=== PATIENT | male | born 1945 | race Caucasian/White ===

== ENCOUNTER 2017-11-01 11:44 | Inpatient (IN) | payer MEDICARE ==
[~2017-11-01] VITALS: Ht 177.8 cm; Wt 62.6 kg
[2017-11-01 14:54] VITALS: BP 142/81
[2017-11-01] MEDS ORDERED: ACETAMINOPHEN 325 MG TABLET PO PRN (15:30)
[2017-11-01] MEDS ORDERED: AmLODIPine BESYLATE 10 MG TABLET PO PRN (15:45)
[2017-11-01] MEDS ORDERED: IPRATROPIUM BROMIDE 0.5 MG/2.5 ML NEB SOLUTION NEB PRN (15:45)
[2017-11-01] MEDS ORDERED: BENZONATATE 100 MG CAPSULE PO PRN (15:45)
[2017-11-01] MEDS ORDERED: ALBUTEROL SULFATE 2.5 MG/0.5 ML NEB SOLUTION NEB PRN (15:45)
[2017-11-01] MEDS ORDERED: TiZANidine HCL 4 MG TABLET PO PRN (15:45)
[2017-11-01 15:54] VITALS: BP 141/77
[2017-11-01] MEDS: LACTOBACILLUS ACIDOPHILUS/BULGARICUS GRANULES PACKET PO SCH ×2 (16:00→21:00)
[2017-11-01] MEDS: OxyCODONE HCL 5 MG IR TABLET PO PRN ×3 (16:44→19:00)
[2017-11-01] MEDS: GABAPENTIN 400 MG CAPSULE PO SCH ×2 (17:26→21:20)
[2017-11-01] MEDS: DICLOFENAC SODIUM 1% 100 GM GEL [2GM] TP SCH ×2 (17:27→21:20)
[2017-11-01] MEDS: OXYGEN THERAPY IH SCH (20:05)
[2017-11-01 20:15] LABS: APPEARANCE,URINE CLOUDY (CLEAR); BILIRUBIN,URINE NEGATIVE (NEGATIVE); GLUCOSE, URINE (UA) NEGATIVE (NEGATIVE); KETONES,URINE NEGATIVE (NEGATIVE); LEUKOCYTE ESTERASE ,URINE LARGE (NEGATIVE); NITRATE,URINE NEGATIVE (NEGATIVE); OCCULT BLOOD,URINE SMALL (NEGATIVE); PROTEIN,URINE NEGATIVE (NEGATIVE); UROBILINOGEN,URINE 0.2 mg/dL (<=1.0)
[2017-11-01] MEDS: FLUTICASONE PROPIONATE 50 MCG/SPRAY 16 GM NASAL SPRAY NASAL SCH ×2 (21:00→21:20)
[2017-11-01 21:02] LABS: BACTERIA,URINE Many /HPF (None Seen); WBC,URINE 26-50 /HPF (0-5)
[2017-11-01 21:03] LABS: SQUAMOUS EPITHELIAL CELL,UR Few /LPF (None Seen)
[2017-11-01] MEDS: TAMSULOSIN HCL 0.4 MG CAPSULE PO SCH (21:20)
[2017-11-01] MEDS: SENNA 187 MG TABLET PO SCH (21:20)
[2017-11-01] MEDS: DOCUSATE SODIUM 100 MG CAPSULE PO SCH (21:20)
[2017-11-01] MEDS: APIXABAN 5 MG TABLET PO SCH (21:20)
[2017-11-02 00:57] VITALS: BP 117/67
[2017-11-02] MEDS: OxyCODONE HCL 5 MG IR TABLET PO PRN ×5 (00:57→20:10)
[2017-11-02] MEDS: PANTOPRAZOLE SODIUM 40 MG DR TABLET PO SCH (05:37)
[2017-11-02 06:54] LABS: EOSINOPHILS % (AUTO) 4.4 % (1.0-6.0); HEMATOCRIT 28.8 % (41-53); HEMOGLOBIN 9.9 g/dL (13.5-17.5); LYMPHOCYTES # (AUTO) 1.1 K/uL (1.0-4.8); LYMPHOCYTES % (AUTO) 12.1 % (22.0-44.0); MEAN CORPUSCULAR HEMOGLOBIN 31.6 pg (26.0-34.0); MEAN CORPUSCULAR HGB CONC 34.5 G/dL (31.0-37.0); MEAN CORPUSCULAR VOLUME 92 fL (80-100); MONOCYTES # (AUTO) 1.1 K/uL (0.1-1.0); MONOCYTES % (AUTO) 11.7 % (2.0-9.0); NEUTROPHILS # (AUTO) 6.4 K/uL (1.8-7.7); NEUTROPHILS % (AUTO) 70.8 % (40.0-70.0); PLATELET COUNT (AUTO) 244 K/uL (150-450); RED BLOOD CELL COUNT(AUTO) 3.14 MIL/uL (4.50-5.90); RED CELL DISTRIBUTION WIDTH 18.1 % (11.5-14.5)
[2017-11-02 07:41] LABS: ALBUMIN 2.9 g/dL (3.4-5.0); BILIRUBIN,TOTAL 0.6 mg/dL (0.1-1.0); CALCIUM, TOTAL 8.6 mg/dL (8.8-10.5); CREATININE 1.2 mg/dL (0.60-1.30); POTASSIUM 4.8 mmol/L (3.5-5.1); THYROID STIMULATING HORMONE 2.18 uIU/mL (0.36-3.74); TOTAL PROTEIN, SERUM 6.4 g/dL (6.4-8.2)
[2017-11-02 07:45] VITALS: BP 130/76
[2017-11-02] MEDS: FLUTICASONE PROPIONATE 50 MCG/SPRAY 16 GM NASAL SPRAY NASAL SCH ×3 (09:00→20:10)
[2017-11-02] MEDS: LACTOBACILLUS ACIDOPHILUS/BULGARICUS GRANULES PACKET PO SCH ×2 (09:00→10:03)
[2017-11-02] MEDS: GABAPENTIN 400 MG CAPSULE PO SCH ×3 (10:03→20:10)
[2017-11-02] MEDS: FUROSEMIDE 20 MG TABLET PO SCH (10:04)
[2017-11-02] MEDS: CHOLECALCIFEROL (VIT D3) 2,000 UNITS TABLET PO SCH (10:04)
[2017-11-02] MEDS: ASCORBIC ACID 500 MG TABLET PO SCH (10:04)
[2017-11-02] MEDS: APIXABAN 5 MG TABLET PO SCH ×2 (10:04→20:10)
[2017-11-02] MEDS: ALLOPURINOL 100 MG TABLET PO SCH (10:04)
[2017-11-02] MEDS: MULTIVITAMINS WITH MINERALS, THERAPEUTIC TABLET PO SCH (10:04)
[2017-11-02] MEDS: FERROUS SULFATE 325 MG EC TABLET PO SCH (10:05)
[2017-11-02] MEDS: SOTALOL HCL 80 MG TABLET PO SCH (10:05)
[2017-11-02] MEDS: DICLOFENAC SODIUM 1% 100 GM GEL [2GM] TP SCH ×3 (10:05→20:10)
[2017-11-02] MEDS: DOCUSATE SODIUM 100 MG CAPSULE PO SCH ×2 (10:05→20:10)
[2017-11-02] MEDS: POLYETHYLENE GLYCOL 3350 17 GM PACKET PO SCH (10:06)
[2017-11-02] MEDS: OXYGEN THERAPY IH SCH ×2 (10:36→20:09)
[2017-11-02 15:20] VITALS: BP 123/68
[2017-11-02] MEDS: TAMSULOSIN HCL 0.4 MG CAPSULE PO SCH (20:10)
[2017-11-02] MEDS: SENNA 187 MG TABLET PO SCH (20:10)
[2017-11-03] MEDS ORDERED: SOTA80 PO (00:41)
[2017-11-03] MEDS ORDERED: FURO20 PO (00:41)
[2017-11-03] MEDS ORDERED: ALLO300 PO (00:41)
[2017-11-03 01:12] VITALS: BP 154/76
[2017-11-03] MEDS: OxyCODONE HCL 5 MG IR TABLET PO PRN ×5 (01:12→20:11)
[2017-11-03] MEDS: PANTOPRAZOLE SODIUM 40 MG DR TABLET PO SCH (05:40)
[2017-11-03 07:12] VITALS: BP 135/82
[2017-11-03] MEDS: OXYGEN THERAPY IH SCH ×2 (07:29→21:23)
[2017-11-03] MEDS: FERROUS SULFATE 325 MG EC TABLET PO SCH (07:30)
[2017-11-03] MEDS: CHOLECALCIFEROL (VIT D3) 2,000 UNITS TABLET PO SCH (07:30)
[2017-11-03] MEDS: FLUTICASONE PROPIONATE 50 MCG/SPRAY 16 GM NASAL SPRAY NASAL SCH ×3 (07:30→21:00)
[2017-11-03] MEDS: SOTALOL HCL 80 MG TABLET PO SCH (07:31)
[2017-11-03] MEDS: MULTIVITAMINS WITH MINERALS, THERAPEUTIC TABLET PO SCH (07:31)
[2017-11-03] MEDS: FUROSEMIDE 20 MG TABLET PO SCH (07:31)
[2017-11-03] MEDS: ASCORBIC ACID 500 MG TABLET PO SCH (07:31)
[2017-11-03] MEDS: APIXABAN 5 MG TABLET PO SCH ×2 (07:32→21:23)
[2017-11-03] MEDS: GABAPENTIN 400 MG CAPSULE PO SCH ×3 (07:32→21:23)
[2017-11-03] MEDS: ALLOPURINOL 100 MG TABLET PO SCH (07:32)
[2017-11-03] MEDS: DOCUSATE SODIUM 100 MG CAPSULE PO SCH ×3 (07:32→21:00)
[2017-11-03] MEDS: DICLOFENAC SODIUM 1% 100 GM GEL [2GM] TP SCH ×3 (07:33→21:23)
[2017-11-03] MEDS: POTASSIUM CHLORIDE 10% 40 MEQ/30 ML LIQUID UDCUP PO SCH (07:33)
[2017-11-03] MEDS: POLYETHYLENE GLYCOL 3350 17 GM PACKET PO SCH (07:33)
[2017-11-03 15:17] VITALS: BP 121/67
[2017-11-03] MEDS: SENNA 187 MG TABLET PO SCH (21:23)
[2017-11-03] MEDS: TAMSULOSIN HCL 0.4 MG CAPSULE PO SCH (21:23)
[2017-11-04 00:30] VITALS: BP 134/68
[2017-11-04] MEDS: OxyCODONE HCL 5 MG IR TABLET PO PRN ×6 (00:30→21:17)
[2017-11-04] MEDS ORDERED: DOCUSATE CALCIUM 240 MG CAPSULE PO PRN (05:15)
[2017-11-04] MEDS: PANTOPRAZOLE SODIUM 40 MG DR TABLET PO SCH (06:10)
[2017-11-04 08:03] VITALS: BP 148/81
[2017-11-04] MEDS: FLUTICASONE PROPIONATE 50 MCG/SPRAY 16 GM NASAL SPRAY NASAL SCH ×2 (09:00→20:43)
[2017-11-04] MEDS: POLYETHYLENE GLYCOL 3350 17 GM PACKET PO SCH (09:00)
[2017-11-04] MEDS: CHOLECALCIFEROL (VIT D3) 2,000 UNITS TABLET PO SCH (10:08)
[2017-11-04] MEDS: ASCORBIC ACID 500 MG TABLET PO SCH (10:09)
[2017-11-04] MEDS: MULTIVITAMINS WITH MINERALS, THERAPEUTIC TABLET PO SCH (10:09)
[2017-11-04] MEDS: FERROUS SULFATE 325 MG EC TABLET PO SCH (10:09)
[2017-11-04] MEDS: GABAPENTIN 400 MG CAPSULE PO SCH ×3 (10:09→20:43)
[2017-11-04] MEDS: FUROSEMIDE 20 MG TABLET PO SCH (10:10)
[2017-11-04] MEDS: SOTALOL HCL 80 MG TABLET PO SCH (10:10)
[2017-11-04] MEDS: DICLOFENAC SODIUM 1% 100 GM GEL [2GM] TP SCH ×3 (10:10→20:43)
[2017-11-04] MEDS: APIXABAN 5 MG TABLET PO SCH ×2 (10:10→20:43)
[2017-11-04] MEDS: ALLOPURINOL 300 MG TABLET PO SCH (10:11)
[2017-11-04] MEDS: OXYGEN THERAPY IH SCH ×2 (10:12→20:42)
[2017-11-04 16:26] VITALS: BP 138/70
[2017-11-04] MEDS: SENNA 187 MG TABLET PO SCH (20:43)
[2017-11-04] MEDS: SULFAMETHOX/TRIMETH DS 800-160 MG/TABLET PO SCH (20:43)
[2017-11-04] MEDS: TAMSULOSIN HCL 0.4 MG CAPSULE PO SCH (20:43)
[2017-11-04 23:28] VITALS: BP 130/70
[2017-11-05] MEDS: OxyCODONE HCL 5 MG IR TABLET PO PRN ×5 (01:36→20:16)
[2017-11-05 07:30] VITALS: BP 111/73
[2017-11-05] MEDS: PANTOPRAZOLE SODIUM 40 MG DR TABLET PO SCH (07:46)
[2017-11-05] MEDS: FERROUS SULFATE 325 MG EC TABLET PO SCH (07:46)
[2017-11-05] MEDS: OXYGEN THERAPY IH SCH ×2 (08:00→20:16)
[2017-11-05] MEDS: FLUTICASONE PROPIONATE 50 MCG/SPRAY 16 GM NASAL SPRAY NASAL SCH (09:00)
[2017-11-05] MEDS: POLYETHYLENE GLYCOL 3350 17 GM PACKET PO SCH (09:00)
[2017-11-05] MEDS: APIXABAN 5 MG TABLET PO SCH ×2 (10:00→22:53)
[2017-11-05] MEDS: GABAPENTIN 400 MG CAPSULE PO SCH ×3 (10:00→22:53)
[2017-11-05] MEDS: ALLOPURINOL 300 MG TABLET PO SCH (10:00)
[2017-11-05] MEDS: CHOLECALCIFEROL (VIT D3) 2,000 UNITS TABLET PO SCH (10:00)
[2017-11-05] MEDS: ASCORBIC ACID 500 MG TABLET PO SCH (10:00)
[2017-11-05] MEDS: FUROSEMIDE 20 MG TABLET PO SCH (10:01)
[2017-11-05] MEDS: MULTIVITAMINS WITH MINERALS, THERAPEUTIC TABLET PO SCH (10:01)
[2017-11-05] MEDS: DICLOFENAC SODIUM 1% 100 GM GEL [2GM] TP SCH ×3 (10:01→22:53)
[2017-11-05] MEDS: SOTALOL HCL 80 MG TABLET PO SCH (10:01)
[2017-11-05] MEDS: SULFAMETHOX/TRIMETH DS 800-160 MG/TABLET PO SCH ×2 (10:01→22:53)
[2017-11-05] MEDS: POTASSIUM CHLORIDE 10% 40 MEQ/30 ML LIQUID UDCUP PO SCH (10:02)
[2017-11-05] MEDS ORDERED: TRIAMCINOLONE ACETONIDE 40 MG/ML VIAL IM ONE (15:00)
[2017-11-05] MEDS ORDERED: LIDOCAINE HCL 1% 20 ML VIAL INJ ONE (15:00)
[2017-11-05] MEDS ORDERED: BUPIVACAINE HCL/PF 0.5% 10 ML VIAL INJ ONE (15:00)
[2017-11-05 16:15] VITALS: BP 129/70
[2017-11-05] MEDS: TAMSULOSIN HCL 0.4 MG CAPSULE PO SCH (22:53)
[2017-11-05] MEDS: SENNA 187 MG TABLET PO SCH (22:53)
[2017-11-06 00:17] VITALS: BP 139/89
[2017-11-06] MEDS: OxyCODONE HCL 5 MG IR TABLET PO PRN ×5 (00:17→23:51)
[2017-11-06] MEDS: PANTOPRAZOLE SODIUM 40 MG DR TABLET PO SCH (06:20)
[2017-11-06 07:45] VITALS: BP 123/66
[2017-11-06] MEDS: OXYGEN THERAPY IH SCH ×2 (08:00→20:00)
[2017-11-06] MEDS: POLYETHYLENE GLYCOL 3350 17 GM PACKET PO SCH (09:00)
[2017-11-06] MEDS: FERROUS SULFATE 325 MG EC TABLET PO SCH (10:26)
[2017-11-06] MEDS: ASCORBIC ACID 500 MG TABLET PO SCH (10:26)
[2017-11-06] MEDS: CHOLECALCIFEROL (VIT D3) 2,000 UNITS TABLET PO SCH (10:26)
[2017-11-06] MEDS: DICLOFENAC SODIUM 1% 100 GM GEL [2GM] TP SCH ×3 (10:26→21:02)
[2017-11-06] MEDS: MULTIVITAMINS WITH MINERALS, THERAPEUTIC TABLET PO SCH (10:26)
[2017-11-06] MEDS: APIXABAN 5 MG TABLET PO SCH ×2 (10:26→21:02)
[2017-11-06] MEDS: SULFAMETHOX/TRIMETH DS 800-160 MG/TABLET PO SCH ×2 (10:26→21:02)
[2017-11-06] MEDS: GABAPENTIN 400 MG CAPSULE PO SCH ×3 (10:26→21:02)
[2017-11-06] MEDS: FUROSEMIDE 20 MG TABLET PO SCH (10:27)
[2017-11-06] MEDS: ALLOPURINOL 300 MG TABLET PO SCH (10:27)
[2017-11-06] MEDS: SOTALOL HCL 80 MG TABLET PO SCH (10:27)
[2017-11-06] MEDS: HYDROCORTISONE 1% 30 GM OINTMENT TP PRN ×2 (14:21→18:25)
[2017-11-06 16:00] VITALS: BP 103/65
[2017-11-06] MEDS: SENNA 187 MG TABLET PO SCH (21:02)
[2017-11-06] MEDS: TAMSULOSIN HCL 0.4 MG CAPSULE PO SCH (21:02)
[2017-11-06 23:51] VITALS: BP 113/62
[2017-11-07] MEDS: HYDROCORTISONE 1% 30 GM OINTMENT TP PRN ×3 (05:11→21:41)
[2017-11-07] MEDS: OxyCODONE HCL 5 MG IR TABLET PO PRN ×3 (05:12→21:41)
[2017-11-07] MEDS: PANTOPRAZOLE SODIUM 40 MG DR TABLET PO SCH (05:42)
[2017-11-07] MEDS: OXYGEN THERAPY IH SCH ×2 (08:00→20:00)
[2017-11-07] MEDS: ASCORBIC ACID 500 MG TABLET PO SCH (08:22)
[2017-11-07] MEDS: CHOLECALCIFEROL (VIT D3) 2,000 UNITS TABLET PO SCH (08:23)
[2017-11-07] MEDS: DICLOFENAC SODIUM 1% 100 GM GEL [2GM] TP SCH ×3 (08:23→21:41)
[2017-11-07] MEDS: FERROUS SULFATE 325 MG EC TABLET PO SCH (08:23)
[2017-11-07] MEDS: SULFAMETHOX/TRIMETH DS 800-160 MG/TABLET PO SCH ×2 (08:23→21:40)
[2017-11-07] MEDS: MULTIVITAMINS WITH MINERALS, THERAPEUTIC TABLET PO SCH (08:23)
[2017-11-07] MEDS: FUROSEMIDE 20 MG TABLET PO SCH (08:24)
[2017-11-07] MEDS: APIXABAN 5 MG TABLET PO SCH ×2 (08:24→21:40)
[2017-11-07] MEDS: ALLOPURINOL 300 MG TABLET PO SCH (08:25)
[2017-11-07] MEDS: GABAPENTIN 400 MG CAPSULE PO SCH ×3 (08:25→21:40)
[2017-11-07] MEDS: POLYETHYLENE GLYCOL 3350 17 GM PACKET PO SCH (08:25)
[2017-11-07] MEDS: POTASSIUM CHLORIDE 10% 40 MEQ/30 ML LIQUID UDCUP PO SCH (08:25)
[2017-11-07] MEDS: SOTALOL HCL 80 MG TABLET PO SCH (08:25)
[2017-11-07 08:40] VITALS: BP 90/51
[2017-11-07] MEDS: TraMADol HCL 50 MG TABLET PO PRN ×2 (08:44→16:10)
[2017-11-07 15:37] VITALS: BP 109/63
[2017-11-07] MEDS: BETHANECHOL CHLORIDE 25 MG TABLET PO SCH ×2 (16:10→21:41)
[2017-11-07] MEDS: TAMSULOSIN HCL 0.4 MG CAPSULE PO SCH (21:40)
[2017-11-07] MEDS: SENNA 187 MG TABLET PO SCH (21:41)
[2017-11-08 01:21] VITALS: BP 99/45
[2017-11-08 03:35] VITALS: BP 104/67
[2017-11-08] MEDS: OxyCODONE HCL 5 MG IR TABLET PO PRN ×3 (03:35→21:58)
[2017-11-08] MEDS: PANTOPRAZOLE SODIUM 40 MG DR TABLET PO SCH (05:56)
[2017-11-08] MEDS: TraMADol HCL 50 MG TABLET PO PRN ×2 (05:59→15:42)
[2017-11-08 07:35] VITALS: BP 104/66
[2017-11-08] MEDS: OXYGEN THERAPY IH SCH ×2 (08:00→21:56)
[2017-11-08] MEDS: DICLOFENAC SODIUM 1% 100 GM GEL [2GM] TP SCH ×3 (08:40→21:58)
[2017-11-08] MEDS: CHOLECALCIFEROL (VIT D3) 2,000 UNITS TABLET PO SCH (08:40)
[2017-11-08] MEDS: GABAPENTIN 400 MG CAPSULE PO SCH ×3 (08:40→21:57)
[2017-11-08] MEDS: HYDROCORTISONE 1% 30 GM OINTMENT TP PRN ×2 (08:40→16:05)
[2017-11-08] MEDS: BETHANECHOL CHLORIDE 25 MG TABLET PO SCH ×3 (08:41→21:57)
[2017-11-08] MEDS: SOTALOL HCL 80 MG TABLET PO SCH (08:41)
[2017-11-08] MEDS: ALLOPURINOL 300 MG TABLET PO SCH (08:41)
[2017-11-08] MEDS: SULFAMETHOX/TRIMETH DS 800-160 MG/TABLET PO SCH ×2 (08:41→21:58)
[2017-11-08] MEDS: MULTIVITAMINS WITH MINERALS, THERAPEUTIC TABLET PO SCH (08:42)
[2017-11-08] MEDS: FERROUS SULFATE 325 MG EC TABLET PO SCH (08:42)
[2017-11-08] MEDS: ASCORBIC ACID 500 MG TABLET PO SCH (08:42)
[2017-11-08] MEDS: APIXABAN 5 MG TABLET PO SCH ×2 (08:42→21:57)
[2017-11-08] MEDS: POLYETHYLENE GLYCOL 3350 17 GM PACKET PO SCH ×2 (08:42→10:04)
[2017-11-08] MEDS: FUROSEMIDE 20 MG TABLET PO SCH (08:42)
[2017-11-08] MEDS: NYSTATIN 15 GM POWDER BOTTLE TP SCH ×2 (10:03→21:58)
[2017-11-08 15:40] VITALS: BP 112/67
[2017-11-08] MEDS: TAMSULOSIN HCL 0.4 MG CAPSULE PO SCH (21:57)
[2017-11-08] MEDS: SENNA 187 MG TABLET PO SCH (21:58)
[2017-11-09 01:17] VITALS: BP 107/62
[2017-11-09] MEDS: OxyCODONE HCL 5 MG IR TABLET PO PRN ×4 (04:17→19:44)
[2017-11-09] MEDS: PANTOPRAZOLE SODIUM 40 MG DR TABLET PO SCH (06:00)
[2017-11-09 06:33] LABS: EOSINOPHILS % (AUTO) 4.5 % (1.0-6.0); HEMOGLOBIN 9.8 g/dL (13.5-17.5); LYMPHOCYTES # (AUTO) 0.8 K/uL (1.0-4.8); LYMPHOCYTES % (AUTO) 11.4 % (22.0-44.0); MEAN CORPUSCULAR HEMOGLOBIN 31.3 pg (26.0-34.0); MEAN CORPUSCULAR VOLUME 92 fL (80-100); MONOCYTES # (AUTO) 0.8 K/uL (0.1-1.0); MONOCYTES % (AUTO) 10.4 % (2.0-9.0); NEUTROPHILS # (AUTO) 5.4 K/uL (1.8-7.7); NEUTROPHILS % (AUTO) 72.7 % (40.0-70.0); PLATELET COUNT (AUTO) 261 K/uL (150-450); RED BLOOD CELL COUNT(AUTO) 3.14 MIL/uL (4.50-5.90); RED CELL DISTRIBUTION WIDTH 18.1 % (11.5-14.5)
[2017-11-09 06:59] LABS: % IRON SATURATION 25.5 % (30-44)
[2017-11-09 07:12] LABS: ALBUMIN 3.2 g/dL (3.4-5.0); BILIRUBIN,TOTAL 0.3 mg/dL (0.1-1.0); CALCIUM, TOTAL 8.8 mg/dL (8.8-10.5); CREATININE 1.95 mg/dL (0.60-1.30); TOTAL PROTEIN, SERUM 6.8 g/dL (6.4-8.2)
[2017-11-09 07:29] LABS: POTASSIUM 7.3 mmol/L (3.5-5.1)
[2017-11-09 08:00] VITALS: BP 102/59
[2017-11-09] MEDS ORDERED: SODIUM POLYSTYRENE SULFONATE 15 GM/60 ML SUSPENSION BOTTLE PO ONE ×2 (08:00→19:00)
[2017-11-09] MEDS: SULFAMETHOX/TRIMETH DS 800-160 MG/TABLET PO SCH (08:07)
[2017-11-09] MEDS: FERROUS SULFATE 325 MG EC TABLET PO SCH (08:08)
[2017-11-09] MEDS: BETHANECHOL CHLORIDE 25 MG TABLET PO SCH ×3 (08:08→21:47)
[2017-11-09] MEDS: MULTIVITAMINS WITH MINERALS, THERAPEUTIC TABLET PO SCH (08:09)
[2017-11-09] MEDS: SOTALOL HCL 80 MG TABLET PO SCH (08:09)
[2017-11-09] MEDS: ASCORBIC ACID 500 MG TABLET PO SCH (08:10)
[2017-11-09] MEDS: GABAPENTIN 400 MG CAPSULE PO SCH ×5 (08:10→21:47)
[2017-11-09] MEDS: APIXABAN 5 MG TABLET PO SCH ×2 (08:11→21:47)
[2017-11-09] MEDS: DICLOFENAC SODIUM 1% 100 GM GEL [2GM] TP SCH ×3 (08:11→21:00)
[2017-11-09] MEDS: NYSTATIN 15 GM POWDER BOTTLE TP SCH ×2 (08:11→21:47)
[2017-11-09] MEDS: CHOLECALCIFEROL (VIT D3) 2,000 UNITS TABLET PO SCH (08:12)
[2017-11-09] MEDS ORDERED: EPOETIN ALFA 10,000 UNITS/ML VIAL SQ SCH (09:00)
[2017-11-09] MEDS: ALLOPURINOL 300 MG TABLET PO SCH (09:00)
[2017-11-09] MEDS: POLYETHYLENE GLYCOL 3350 17 GM PACKET PO SCH (09:00)
[2017-11-09] MEDS: ONDANSETRON HCL 4 MG TABLET PO PRN (09:15)
[2017-11-09] MEDS: OXYGEN THERAPY IH SCH ×3 (10:58→23:21)
[2017-11-09 11:13] LABS: FOLATE SERUM 8.5 ng/mL (5.4-)
[2017-11-09] MEDS ORDERED: CALCIUM GLUCONATE 1,000 MG in DEXTROSE 5%-WATER 50 ML IV ONE (11:15)
[2017-11-09 13:31] LABS: CREATININE 1.86 mg/dL (0.60-1.30)
[2017-11-09 13:32] LABS: CALCIUM, TOTAL 9.1 mg/dL (8.8-10.5)
[2017-11-09 13:34] LABS: POTASSIUM 6.6 mmol/L (3.5-5.1)
[2017-11-09] MEDS: SODIUM CHLORIDE 0.9% 1,000 ML IV SCH (14:17)
[2017-11-09] MEDS ORDERED: FUROSEMIDE 20 MG TABLET PO SCH (15:00)
[2017-11-09 16:00] VITALS: BP 108/58
[2017-11-09 18:25] LABS: CREATININE 1.85 mg/dL (0.60-1.30)
[2017-11-09 18:27] LABS: POTASSIUM 6.2 mmol/L (3.5-5.1)
[2017-11-09 18:32] LABS: CREATININE,URINE RANDOM 40.3 mg/dL (30.0-125.0)
[2017-11-09] MEDS: SENNA 187 MG TABLET PO SCH (21:00)
[2017-11-09] MEDS: TAMSULOSIN HCL 0.4 MG CAPSULE PO SCH (21:47)
[2017-11-09 23:47] VITALS: BP 145/82
[2017-11-10] MEDS: OxyCODONE HCL 5 MG IR TABLET PO PRN ×7 (00:30→21:33)
[2017-11-10] MEDS: 0.9% SODIUM CHLORIDE 10 ML SYRINGE IVP SCH ×3 (00:30→16:28)
[2017-11-10] MEDS: SODIUM CHLORIDE 0.9% 1,000 ML IV SCH ×2 (01:48→14:50)
[2017-11-10] MEDS: PANTOPRAZOLE SODIUM 40 MG DR TABLET PO SCH (06:04)
[2017-11-10 06:57] LABS: CALCIUM, TOTAL 9.3 mg/dL (8.8-10.5); CREATININE 1.74 mg/dL (0.60-1.30); POTASSIUM 5.9 mmol/L (3.5-5.1)
[2017-11-10 07:00] VITALS: BP 144/86
[2017-11-10] MEDS: FERROUS SULFATE 325 MG EC TABLET PO SCH (07:30)
[2017-11-10] MEDS: APIXABAN 5 MG TABLET PO SCH ×2 (08:37→22:01)
[2017-11-10] MEDS: FUROSEMIDE 20 MG TABLET PO SCH (08:38)
[2017-11-10] MEDS: SOTALOL HCL 80 MG TABLET PO SCH (08:40)
[2017-11-10] MEDS: HYDROCORTISONE 1% 30 GM OINTMENT TP PRN (08:41)
[2017-11-10] MEDS: MULTIVITAMINS WITH MINERALS, THERAPEUTIC TABLET PO SCH (09:00)
[2017-11-10] MEDS: BETHANECHOL CHLORIDE 25 MG TABLET PO SCH ×3 (09:00→21:00)
[2017-11-10] MEDS: DICLOFENAC SODIUM 1% 100 GM GEL [2GM] TP SCH ×3 (09:00→21:00)
[2017-11-10] MEDS: ASCORBIC ACID 500 MG TABLET PO SCH (09:00)
[2017-11-10] MEDS: GABAPENTIN 400 MG CAPSULE PO SCH ×3 (09:00→21:00)
[2017-11-10] MEDS: CHOLECALCIFEROL (VIT D3) 2,000 UNITS TABLET PO SCH (09:00)
[2017-11-10] MEDS: POLYETHYLENE GLYCOL 3350 17 GM PACKET PO SCH (09:00)
[2017-11-10] MEDS: NYSTATIN 15 GM POWDER BOTTLE TP SCH ×2 (09:39→22:01)
[2017-11-10 15:25] VITALS: BP 128/77
[2017-11-10] MEDS: ONDANSETRON HCL 4 MG TABLET PO PRN (19:53)
[2017-11-10] MEDS: OXYGEN THERAPY IH SCH (20:00)
[2017-11-10 20:10] VITALS: BP 160/80
[2017-11-10] MEDS: SENNA 187 MG TABLET PO SCH (21:00)
[2017-11-10] MEDS: TAMSULOSIN HCL 0.4 MG CAPSULE PO SCH (21:00)
[2017-11-11] MEDS: 0.9% SODIUM CHLORIDE 10 ML SYRINGE IVP SCH ×2 (00:33→09:41)
[2017-11-11 00:41] VITALS: BP 133/73
[2017-11-11] MEDS: OxyCODONE HCL 5 MG IR TABLET PO PRN ×6 (01:36→22:41)
[2017-11-11] MEDS ORDERED: SODIUM CHLORIDE 0.9% 1,000 ML IV SCH (04:00)
[2017-11-11] MEDS: SODIUM CHLORIDE 0.9% 1,000 ML IV SCH (04:03)
[2017-11-11] MEDS: PANTOPRAZOLE SODIUM 40 MG DR TABLET PO SCH (05:37)
[2017-11-11 07:30] VITALS: BP 136/77
[2017-11-11] MEDS: FERROUS SULFATE 325 MG EC TABLET PO SCH (07:30)
[2017-11-11 08:16] LABS: CALCIUM, TOTAL 8.7 mg/dL (8.8-10.5); CREATININE 1.43 mg/dL (0.60-1.30); POTASSIUM 5.6 mmol/L (3.5-5.1)
[2017-11-11] MEDS: MULTIVITAMINS WITH MINERALS, THERAPEUTIC TABLET PO SCH (09:00)
[2017-11-11] MEDS: POLYETHYLENE GLYCOL 3350 17 GM PACKET PO SCH (09:00)
[2017-11-11] MEDS: ASCORBIC ACID 500 MG TABLET PO SCH (09:00)
[2017-11-11] MEDS: GABAPENTIN 400 MG CAPSULE PO SCH ×3 (09:00→21:00)
[2017-11-11] MEDS: BETHANECHOL CHLORIDE 25 MG TABLET PO SCH ×3 (09:00→21:00)
[2017-11-11] MEDS: DICLOFENAC SODIUM 1% 100 GM GEL [2GM] TP SCH ×3 (09:00→21:00)
[2017-11-11] MEDS: CHOLECALCIFEROL (VIT D3) 2,000 UNITS TABLET PO SCH (09:00)
[2017-11-11] MEDS: SOTALOL HCL 80 MG TABLET PO SCH (09:40)
[2017-11-11] MEDS: NYSTATIN 15 GM POWDER BOTTLE TP SCH ×2 (09:40→21:26)
[2017-11-11] MEDS: HYDROCORTISONE 1% 30 GM OINTMENT TP PRN (09:40)
[2017-11-11] MEDS: OXYGEN THERAPY IH SCH ×2 (09:40→20:00)
[2017-11-11] MEDS: FUROSEMIDE 20 MG TABLET PO SCH (09:40)
[2017-11-11] MEDS: APIXABAN 5 MG TABLET PO SCH ×2 (09:40→21:13)
[2017-11-11 15:19] VITALS: BP 146/74
[2017-11-11] MEDS: TAMSULOSIN HCL 0.4 MG CAPSULE PO SCH (21:00)
[2017-11-11] MEDS: SENNA 187 MG TABLET PO SCH (21:00)
[2017-11-11] MEDS: TraMADol HCL 50 MG TABLET PO PRN ×2 (21:13→21:16)
[2017-11-12 00:26] VITALS: BP 139/79
[2017-11-12] MEDS: OxyCODONE HCL 5 MG IR TABLET PO PRN ×5 (02:50→20:42)
[2017-11-12] MEDS: ONDANSETRON HCL 4 MG TABLET PO PRN (05:36)
[2017-11-12] MEDS: PANTOPRAZOLE SODIUM 40 MG DR TABLET PO SCH (05:52)
[2017-11-12 07:10] LABS: CALCIUM, TOTAL 9.4 mg/dL (8.8-10.5); CREATININE 1.42 mg/dL (0.60-1.30); URIC ACID 5.4 mg/dL (2.6-7.2)
[2017-11-12 07:15] VITALS: BP 152/84
[2017-11-12] MEDS: FERROUS SULFATE 325 MG EC TABLET PO SCH (07:30)
[2017-11-12] MEDS: APIXABAN 5 MG TABLET PO SCH ×2 (07:51→20:42)
[2017-11-12] MEDS: SOTALOL HCL 80 MG TABLET PO SCH (07:51)
[2017-11-12] MEDS: FUROSEMIDE 20 MG TABLET PO SCH (07:51)
[2017-11-12] MEDS: POLYETHYLENE GLYCOL 3350 17 GM PACKET PO SCH (07:57)
[2017-11-12] MEDS: GABAPENTIN 400 MG CAPSULE PO SCH ×3 (07:57→20:56)
[2017-11-12] MEDS: ASCORBIC ACID 500 MG TABLET PO SCH (07:58)
[2017-11-12] MEDS: CHOLECALCIFEROL (VIT D3) 2,000 UNITS TABLET PO SCH (07:58)
[2017-11-12] MEDS: BETHANECHOL CHLORIDE 25 MG TABLET PO SCH ×3 (07:58→20:56)
[2017-11-12] MEDS: OXYGEN THERAPY IH SCH ×2 (07:58→20:00)
[2017-11-12] MEDS: MULTIVITAMINS WITH MINERALS, THERAPEUTIC TABLET PO SCH (07:58)
[2017-11-12] MEDS: DICLOFENAC SODIUM 1% 100 GM GEL [2GM] TP SCH ×3 (07:58→20:56)
[2017-11-12] MEDS: NYSTATIN 15 GM POWDER BOTTLE TP SCH ×2 (12:20→20:56)
[2017-11-12 15:39] VITALS: BP 150/84
[2017-11-12] MEDS: TraMADol HCL 50 MG TABLET PO PRN ×2 (15:39→23:27)
[2017-11-12] MEDS: TAMSULOSIN HCL 0.4 MG CAPSULE PO SCH (20:56)
[2017-11-12] MEDS: SENNA 187 MG TABLET PO SCH (20:56)
[2017-11-12 23:27] VITALS: BP 141/81
[2017-11-13] MEDS: OxyCODONE HCL 5 MG IR TABLET PO PRN ×6 (00:39→22:14)
[2017-11-13 06:02] LABS: BASOPHILS % (AUTO) 1.3 % (0.0-2.0); EOSINOPHILS % (AUTO) 4.6 % (1.0-6.0); HEMATOCRIT 33.4 % (41-53); HEMOGLOBIN 11.3 g/dL (13.5-17.5); LYMPHOCYTES # (AUTO) 1.1 K/uL (1.0-4.8); LYMPHOCYTES % (AUTO) 13.1 % (22.0-44.0); MEAN CORPUSCULAR HGB CONC 33.7 G/dL (31.0-37.0); MEAN CORPUSCULAR VOLUME 92 fL (80-100); MONOCYTES # (AUTO) 0.8 K/uL (0.1-1.0); MONOCYTES % (AUTO) 9.6 % (2.0-9.0); NEUTROPHILS % (AUTO) 71.4 % (40.0-70.0); PLATELET COUNT (AUTO) 300 K/uL (150-450); RED BLOOD CELL COUNT(AUTO) 3.63 MIL/uL (4.50-5.90); RED CELL DISTRIBUTION WIDTH 18.4 % (11.5-14.5)
[2017-11-13] MEDS: PANTOPRAZOLE SODIUM 40 MG DR TABLET PO SCH (06:11)
[2017-11-13 06:38] LABS: CREATININE 1.22 mg/dL (0.60-1.30); POTASSIUM 4.7 mmol/L (3.5-5.1)
[2017-11-13 07:24] VITALS: BP 155/93
[2017-11-13] MEDS: FERROUS SULFATE 325 MG EC TABLET PO SCH (07:30)
[2017-11-13] MEDS: OXYGEN THERAPY IH SCH ×2 (08:00→20:00)
[2017-11-13] MEDS: GABAPENTIN 400 MG CAPSULE PO SCH ×3 (09:00→20:38)
[2017-11-13] MEDS: MULTIVITAMINS WITH MINERALS, THERAPEUTIC TABLET PO SCH (09:00)
[2017-11-13] MEDS: POLYETHYLENE GLYCOL 3350 17 GM PACKET PO SCH (09:00)
[2017-11-13] MEDS: NYSTATIN 15 GM POWDER BOTTLE TP SCH ×2 (09:00→20:39)
[2017-11-13] MEDS: CHOLECALCIFEROL (VIT D3) 2,000 UNITS TABLET PO SCH (09:00)
[2017-11-13] MEDS: BETHANECHOL CHLORIDE 25 MG TABLET PO SCH ×3 (09:01→20:38)
[2017-11-13] MEDS: SOTALOL HCL 80 MG TABLET PO SCH (09:02)
[2017-11-13] MEDS: APIXABAN 5 MG TABLET PO SCH ×2 (09:02→20:37)
[2017-11-13] MEDS: FUROSEMIDE 20 MG TABLET PO SCH (09:02)
[2017-11-13] MEDS: ASCORBIC ACID 500 MG TABLET PO SCH (09:15)
[2017-11-13] MEDS: DICLOFENAC SODIUM 1% 100 GM GEL [2GM] TP SCH ×3 (09:15→20:40)
[2017-11-13] MEDS: ONDANSETRON HCL 4 MG TABLET PO PRN (12:45)
[2017-11-13] MEDS: SENNA 187 MG TABLET PO SCH (20:38)
[2017-11-13] MEDS: TAMSULOSIN HCL 0.4 MG CAPSULE PO SCH (20:39)
[2017-11-13 23:15] VITALS: BP 147/86
[2017-11-14] MEDS: OxyCODONE HCL 5 MG IR TABLET PO PRN ×6 (02:27→23:44)
[2017-11-14] MEDS: PANTOPRAZOLE SODIUM 40 MG DR TABLET PO SCH (06:08)
[2017-11-14] MEDS: OXYGEN THERAPY IH SCH ×2 (08:00→20:00)
[2017-11-14 08:39] VITALS: BP 166/80
[2017-11-14] MEDS: BETHANECHOL CHLORIDE 25 MG TABLET PO SCH ×3 (08:44→20:54)
[2017-11-14] MEDS: FERROUS SULFATE 325 MG EC TABLET PO SCH (08:44)
[2017-11-14] MEDS: MULTIVITAMINS WITH MINERALS, THERAPEUTIC TABLET PO SCH (08:44)
[2017-11-14] MEDS: APIXABAN 5 MG TABLET PO SCH ×2 (08:44→20:54)
[2017-11-14] MEDS: ASCORBIC ACID 500 MG TABLET PO SCH (08:44)
[2017-11-14] MEDS: CHOLECALCIFEROL (VIT D3) 2,000 UNITS TABLET PO SCH (08:44)
[2017-11-14] MEDS: DICLOFENAC SODIUM 1% 100 GM GEL [2GM] TP SCH ×3 (08:45→20:55)
[2017-11-14] MEDS: NYSTATIN 15 GM POWDER BOTTLE TP SCH ×2 (08:45→20:55)
[2017-11-14] MEDS: POLYETHYLENE GLYCOL 3350 17 GM PACKET PO SCH (08:45)
[2017-11-14] MEDS: GABAPENTIN 400 MG CAPSULE PO SCH ×3 (08:45→20:55)
[2017-11-14 08:48] VITALS: BP 135/68
[2017-11-14] MEDS: SOTALOL HCL 80 MG TABLET PO SCH ×2 (09:00→13:07)
[2017-11-14] MEDS: ONDANSETRON HCL 4 MG TABLET PO PRN (14:16)
[2017-11-14 16:03] VITALS: BP 122/76
[2017-11-14] MEDS: TAMSULOSIN HCL 0.4 MG CAPSULE PO SCH (20:54)
[2017-11-14] MEDS: SENNA 187 MG TABLET PO SCH (20:55)
[2017-11-14 23:30] VITALS: BP 168/86
[2017-11-15] MEDS: OxyCODONE HCL 5 MG IR TABLET PO PRN ×4 (04:44→20:08)
[2017-11-15] MEDS: DOCUSATE SODIUM/BENZOCAINE 283-20MG/5 ML MINI-ENEMA PR SCH ×2 (06:00→09:00)
[2017-11-15] MEDS: FERROUS SULFATE 325 MG EC TABLET PO SCH (07:30)
[2017-11-15] MEDS: OXYGEN THERAPY IH SCH ×2 (08:00→20:00)
[2017-11-15 08:10] VITALS: BP 158/78
[2017-11-15] MEDS: DOCUSATE SODIUM 283 MG/5 ML MINI-ENEMA PR PRN (08:16)
[2017-11-15] MEDS: PANTOPRAZOLE SODIUM 40 MG DR TABLET PO SCH (08:16)
[2017-11-15] MEDS: GABAPENTIN 400 MG CAPSULE PO SCH ×3 (09:00→21:00)
[2017-11-15] MEDS: NYSTATIN 15 GM POWDER BOTTLE TP SCH ×2 (09:00→21:00)
[2017-11-15 09:28] LABS: EOSINOPHILS % (AUTO) 4.6 % (1.0-6.0); HEMATOCRIT 38.4 % (41-53); HEMOGLOBIN 12.7 g/dL (13.5-17.5); LYMPHOCYTES # (AUTO) 1.1 K/uL (1.0-4.8); LYMPHOCYTES % (AUTO) 14.6 % (22.0-44.0); MEAN CORPUSCULAR HGB CONC 33.2 G/dL (31.0-37.0); MEAN CORPUSCULAR VOLUME 93 fL (80-100); MONOCYTES # (AUTO) 0.7 K/uL (0.1-1.0); NEUTROPHILS # (AUTO) 5.6 K/uL (1.8-7.7); NEUTROPHILS % (AUTO) 70.8 % (40.0-70.0); PLATELET COUNT (AUTO) 360 K/uL (150-450); RED BLOOD CELL COUNT(AUTO) 4.11 MIL/uL (4.50-5.90)
[2017-11-15 09:30] LABS: CALCIUM, TOTAL 9.3 mg/dL (8.8-10.5); CREATININE 1.31 mg/dL (0.60-1.30); POTASSIUM 4.5 mmol/L (3.5-5.1)
[2017-11-15] MEDS: DICLOFENAC SODIUM 1% 100 GM GEL [2GM] TP SCH ×3 (10:08→21:00)
[2017-11-15] MEDS: APIXABAN 5 MG TABLET PO SCH ×2 (10:08→20:06)
[2017-11-15] MEDS: BETHANECHOL CHLORIDE 25 MG TABLET PO SCH ×3 (10:13→20:06)
[2017-11-15] MEDS: MULTIVITAMINS WITH MINERALS, THERAPEUTIC TABLET PO SCH (10:13)
[2017-11-15] MEDS: POLYETHYLENE GLYCOL 3350 17 GM PACKET PO SCH (10:13)
[2017-11-15] MEDS: CHOLECALCIFEROL (VIT D3) 2,000 UNITS TABLET PO SCH (10:13)
[2017-11-15] MEDS: ASCORBIC ACID 500 MG TABLET PO SCH (10:13)
[2017-11-15] MEDS: FUROSEMIDE 20 MG TABLET PO SCH (10:14)
[2017-11-15] MEDS: SOTALOL HCL 80 MG TABLET PO SCH (10:20)
[2017-11-15 14:30] VITALS: BP 102/54
[2017-11-15 15:30] VITALS: BP 151/64
[2017-11-15] MEDS: TraMADol HCL 50 MG TABLET PO PRN (17:33)
[2017-11-15] MEDS: SENNA 187 MG TABLET PO SCH (21:00)
[2017-11-15] MEDS: TAMSULOSIN HCL 0.4 MG CAPSULE PO SCH (21:00)
[2017-11-16 00:43] LABS: APPEARANCE,URINE CLEAR (CLEAR); BILIRUBIN,URINE NEGATIVE (NEGATIVE); GLUCOSE, URINE (UA) NEGATIVE (NEGATIVE); KETONES,URINE NEGATIVE (NEGATIVE); LEUKOCYTE ESTERASE ,URINE NEGATIVE (NEGATIVE); NITRATE,URINE NEGATIVE (NEGATIVE); OCCULT BLOOD,URINE NEGATIVE (NEGATIVE); PH,URINE 5.5 (5.0-8.0); PROTEIN,URINE TRACE (NEGATIVE); UROBILINOGEN,URINE 0.2 mg/dL (<=1.0)
[2017-11-16 01:31] VITALS: BP 148/72
[2017-11-16] MEDS: TraMADol HCL 50 MG TABLET PO PRN ×2 (01:31→09:43)
[2017-11-16] MEDS: OxyCODONE HCL 5 MG IR TABLET PO PRN ×4 (04:31→21:30)
[2017-11-16] MEDS: PANTOPRAZOLE SODIUM 40 MG DR TABLET PO SCH (07:01)
[2017-11-16 08:00] VITALS: BP 153/75
[2017-11-16] MEDS: OXYGEN THERAPY IH SCH ×2 (08:00→20:00)
[2017-11-16] MEDS: DICLOFENAC SODIUM 1% 100 GM GEL [2GM] TP SCH ×3 (08:55→21:00)
[2017-11-16] MEDS: POLYETHYLENE GLYCOL 3350 17 GM PACKET PO SCH ×2 (09:00→09:02)
[2017-11-16] MEDS: GABAPENTIN 400 MG CAPSULE PO SCH ×4 (09:00→21:00)
[2017-11-16] MEDS: MULTIVITAMINS WITH MINERALS, THERAPEUTIC TABLET PO SCH (09:02)
[2017-11-16] MEDS: FUROSEMIDE 20 MG TABLET PO SCH (09:02)
[2017-11-16] MEDS: APIXABAN 5 MG TABLET PO SCH ×2 (09:02→21:29)
[2017-11-16] MEDS: CHOLECALCIFEROL (VIT D3) 2,000 UNITS TABLET PO SCH (09:02)
[2017-11-16] MEDS: BETHANECHOL CHLORIDE 25 MG TABLET PO SCH ×3 (09:02→21:30)
[2017-11-16] MEDS: ASCORBIC ACID 500 MG TABLET PO SCH (09:02)
[2017-11-16] MEDS: SOTALOL HCL 80 MG TABLET PO SCH (09:03)
[2017-11-16] MEDS: FERROUS SULFATE 325 MG EC TABLET PO SCH (09:04)
[2017-11-16] MEDS: NYSTATIN 15 GM POWDER BOTTLE TP SCH ×2 (09:53→21:00)
[2017-11-16 16:00] VITALS: BP 138/69
[2017-11-16] MEDS ORDERED: POLYETHYLENE GLYCOL 3350 17 GM PACKET GT SCH (21:00)
[2017-11-16] MEDS: SENNA 187 MG TABLET PO SCH (21:00)
[2017-11-16] MEDS: TAMSULOSIN HCL 0.4 MG CAPSULE PO SCH (21:00)
[2017-11-16] MEDS ORDERED: LACTULOSE 20 GM/30 ML SOLUTION UDCUP GT SCH (21:00)
[2017-11-16] MEDS ORDERED: SENNA 218 MG/5 ML SYRUP ORAL.SYG GT SCH (21:00)
[2017-11-17 00:27] VITALS: BP 144/88
[2017-11-17] MEDS: TraMADol HCL 50 MG TABLET PO PRN ×2 (00:27→12:33)
[2017-11-17] MEDS: OxyCODONE HCL 5 MG IR TABLET PO PRN ×3 (03:23→20:13)
[2017-11-17] MEDS: PANTOPRAZOLE SODIUM 40 MG DR TABLET PO SCH (06:45)
[2017-11-17 07:00] VITALS: BP 147/80
[2017-11-17] MEDS: FERROUS SULFATE 325 MG EC TABLET PO SCH (07:30)
[2017-11-17] MEDS: OXYGEN THERAPY IH SCH ×3 (08:00→20:00)
[2017-11-17] MEDS: DOCUSATE SODIUM/BENZOCAINE 283-20MG/5 ML MINI-ENEMA PR SCH (09:00)
[2017-11-17] MEDS: GABAPENTIN 400 MG CAPSULE PO SCH (09:00)
[2017-11-17] MEDS: POLYETHYLENE GLYCOL 3350 17 GM PACKET PO SCH (09:00)
[2017-11-17] MEDS: MULTIVITAMINS WITH MINERALS, THERAPEUTIC TABLET PO SCH (09:00)
[2017-11-17] MEDS: CHOLECALCIFEROL (VIT D3) 2,000 UNITS TABLET PO SCH (09:00)
[2017-11-17] MEDS: ASCORBIC ACID 500 MG TABLET PO SCH (09:00)
[2017-11-17] MEDS: DICLOFENAC SODIUM 1% 100 GM GEL [2GM] TP SCH ×3 (09:00→20:14)
[2017-11-17] MEDS ORDERED: EPOETIN ALFA 10,000 UNITS/ML VIAL SQ PRN (09:30)
[2017-11-17] MEDS: ONDANSETRON HCL 4 MG TABLET PO PRN (09:54)
[2017-11-17] MEDS: SOTALOL HCL 80 MG TABLET PO SCH (10:02)
[2017-11-17] MEDS: HYDROCORTISONE 1% 30 GM OINTMENT TP PRN (10:03)
[2017-11-17] MEDS: BETHANECHOL CHLORIDE 25 MG TABLET PO SCH ×3 (10:03→20:14)
[2017-11-17] MEDS: APIXABAN 5 MG TABLET PO SCH ×2 (10:03→20:13)
[2017-11-17] MEDS: NYSTATIN 15 GM POWDER BOTTLE TP SCH ×2 (10:05→20:14)
[2017-11-17 16:17] VITALS: BP 119/62
[2017-11-17] MEDS: TAMSULOSIN HCL 0.4 MG CAPSULE PO SCH (20:13)
[2017-11-17] MEDS: SENNA 187 MG TABLET PO SCH (20:14)
[2017-11-18 00:22] VITALS: BP 148/81
[2017-11-18] MEDS: OxyCODONE HCL 5 MG IR TABLET PO PRN ×5 (00:22→22:35)
[2017-11-18] MEDS: TraMADol HCL 50 MG TABLET PO PRN (03:20)
[2017-11-18] MEDS: PANTOPRAZOLE SODIUM 40 MG DR TABLET PO SCH (05:58)
[2017-11-18 06:56] LABS: ANION GAP 4 mmol/L (8-16); CALCIUM, TOTAL 9.4 mg/dL (8.8-10.5); CARBON DIOXIDE 29 mmol/L (22-29); CHLORIDE 102 mmol/L (98-107); CREATININE 1.14 mg/dL (0.60-1.30); GLUCOSE,RANDOM 106 mg/dL (70-110); POTASSIUM 4.6 mmol/L (3.5-5.1); SODIUM SERUM 135 mmol/L (136-145); UREA NITROGEN, BLOOD 35 mg/dL (7-18)
[2017-11-18] MEDS: FERROUS SULFATE 325 MG EC TABLET PO SCH (07:30)
[2017-11-18] MEDS: ONDANSETRON HCL 4 MG TABLET PO PRN (07:35)
[2017-11-18 07:41] LABS: GLOMERULAR FILTR. RATE CALC > 60 mL/min (>60)
[2017-11-18] MEDS: MULTIVITAMINS WITH MINERALS, THERAPEUTIC TABLET PO SCH (09:00)
[2017-11-18] MEDS: NYSTATIN 15 GM POWDER BOTTLE TP SCH ×2 (09:00→21:43)
[2017-11-18] MEDS: POLYETHYLENE GLYCOL 3350 17 GM PACKET PO SCH (09:00)
[2017-11-18] MEDS: FUROSEMIDE 20 MG TABLET PO SCH (09:16)
[2017-11-18] MEDS: DICLOFENAC SODIUM 1% 100 GM GEL [2GM] TP SCH ×3 (09:17→21:00)
[2017-11-18] MEDS: CHOLECALCIFEROL (VIT D3) 2,000 UNITS TABLET PO SCH (09:17)
[2017-11-18] MEDS: ASCORBIC ACID 500 MG TABLET PO SCH (09:17)
[2017-11-18] MEDS: SOTALOL HCL 80 MG TABLET PO SCH (09:18)
[2017-11-18] MEDS: BETHANECHOL CHLORIDE 25 MG TABLET PO SCH ×3 (09:18→21:42)
[2017-11-18] MEDS: APIXABAN 5 MG TABLET PO SCH ×2 (09:19→21:42)
[2017-11-18 09:44] VITALS: BP 160/83
[2017-11-18 10:03] VITALS: BP 112/66
[2017-11-18 10:19] VITALS: BP 112/66
[2017-11-18 15:25] VITALS: BP 115/66
[2017-11-18] MEDS: TAMSULOSIN HCL 0.4 MG CAPSULE PO SCH (21:00)
[2017-11-18] MEDS: SENNA 187 MG TABLET PO SCH (21:00)
[2017-11-19 01:20] VITALS: BP 140/73
[2017-11-19] MEDS: OxyCODONE HCL 5 MG IR TABLET PO PRN ×5 (02:56→23:44)
[2017-11-19] MEDS: ONDANSETRON HCL 4 MG TABLET PO PRN (05:56)
[2017-11-19] MEDS: PANTOPRAZOLE SODIUM 40 MG DR TABLET PO SCH (05:56)
[2017-11-19 06:24] LABS: BASOPHILS % (AUTO) 1.1 % (0.0-2.0); EOSINOPHILS % (AUTO) 6.7 % (1.0-6.0); HEMATOCRIT 35.8 % (41-53); HEMOGLOBIN 12.3 g/dL (13.5-17.5); LYMPHOCYTES % (AUTO) 15.2 % (22.0-44.0); MEAN CORPUSCULAR HEMOGLOBIN 31.8 pg (26.0-34.0); MEAN CORPUSCULAR HGB CONC 34.2 G/dL (31.0-37.0); MEAN CORPUSCULAR VOLUME 93 fL (80-100); MONOCYTES # (AUTO) 0.6 K/uL (0.1-1.0); MONOCYTES % (AUTO) 9.7 % (2.0-9.0); NEUTROPHILS # (AUTO) 4.4 K/uL (1.8-7.7); NEUTROPHILS % (AUTO) 67.3 % (40.0-70.0); PLATELET COUNT (AUTO) 226 K/uL (150-450); RED BLOOD CELL COUNT(AUTO) 3.85 MIL/uL (4.50-5.90); RED CELL DISTRIBUTION WIDTH 18.5 % (11.5-14.5)
[2017-11-19 06:35] LABS: CALCIUM, TOTAL 9.6 mg/dL (8.8-10.5); CREATININE 1.29 mg/dL (0.60-1.30); MAGNESIUM 1.9 mg/dL (1.80-2.40); POTASSIUM 5.1 mmol/L (3.5-5.1)
[2017-11-19 07:00] VITALS: BP 140/74
[2017-11-19] MEDS: FERROUS SULFATE 325 MG EC TABLET PO SCH (07:30)
[2017-11-19] MEDS: NYSTATIN 15 GM POWDER BOTTLE TP SCH ×2 (09:00→21:31)
[2017-11-19] MEDS: MULTIVITAMINS WITH MINERALS, THERAPEUTIC TABLET PO SCH (09:00)
[2017-11-19] MEDS: DOCUSATE SODIUM/BENZOCAINE 283-20MG/5 ML MINI-ENEMA PR SCH (09:00)
[2017-11-19] MEDS: DICLOFENAC SODIUM 1% 100 GM GEL [2GM] TP SCH ×3 (09:00→21:00)
[2017-11-19] MEDS: CHOLECALCIFEROL (VIT D3) 2,000 UNITS TABLET PO SCH (09:00)
[2017-11-19] MEDS: ASCORBIC ACID 500 MG TABLET PO SCH (09:00)
[2017-11-19] MEDS: POLYETHYLENE GLYCOL 3350 17 GM PACKET PO SCH (09:00)
[2017-11-19] MEDS: TraMADol HCL 50 MG TABLET PO PRN (13:02)
[2017-11-19] MEDS: SOTALOL HCL 80 MG TABLET PO SCH (13:35)
[2017-11-19] MEDS: BETHANECHOL CHLORIDE 25 MG TABLET PO SCH ×3 (13:36→21:30)
[2017-11-19] MEDS: APIXABAN 5 MG TABLET PO SCH ×2 (13:36→21:30)
[2017-11-19 15:23] VITALS: BP 145/82
[2017-11-19] MEDS: SENNA 187 MG TABLET PO SCH (21:00)
[2017-11-19] MEDS: TAMSULOSIN HCL 0.4 MG CAPSULE PO SCH (21:00)
[2017-11-19 23:44] VITALS: BP 142/72
[2017-11-20] MEDS: OxyCODONE HCL 5 MG IR TABLET PO PRN ×4 (03:48→22:44)
[2017-11-20] MEDS: PANTOPRAZOLE SODIUM 40 MG DR TABLET PO SCH (05:58)
[2017-11-20] MEDS: ONDANSETRON HCL 4 MG TABLET PO PRN (05:58)
[2017-11-20] MEDS: FERROUS SULFATE 325 MG EC TABLET PO SCH ×2 (07:30→09:33)
[2017-11-20 07:48] VITALS: BP 159/77
[2017-11-20] MEDS: NYSTATIN 15 GM POWDER BOTTLE TP SCH ×2 (09:00→21:54)
[2017-11-20] MEDS: CHOLECALCIFEROL (VIT D3) 2,000 UNITS TABLET PO SCH (09:32)
[2017-11-20] MEDS: SOTALOL HCL 80 MG TABLET PO SCH (09:32)
[2017-11-20] MEDS: APIXABAN 5 MG TABLET PO SCH ×2 (09:32→21:54)
[2017-11-20] MEDS: ASCORBIC ACID 500 MG TABLET PO SCH (09:32)
[2017-11-20] MEDS: BETHANECHOL CHLORIDE 25 MG TABLET PO SCH ×3 (09:32→21:53)
[2017-11-20] MEDS: MULTIVITAMINS WITH MINERALS, THERAPEUTIC TABLET PO SCH (09:33)
[2017-11-20] MEDS: POLYETHYLENE GLYCOL 3350 17 GM PACKET PO SCH (09:33)
[2017-11-20] MEDS: FUROSEMIDE 20 MG TABLET PO SCH (09:33)
[2017-11-20] MEDS: DICLOFENAC SODIUM 1% 100 GM GEL [2GM] TP SCH ×3 (09:35→21:00)
[2017-11-20] MEDS: TraMADol HCL 50 MG TABLET PO PRN (14:17)
[2017-11-20 16:17] VITALS: BP 157/86
[2017-11-20] MEDS: SENNA 187 MG TABLET PO SCH (21:00)
[2017-11-20] MEDS: TAMSULOSIN HCL 0.4 MG CAPSULE PO SCH (21:00)
[2017-11-21 02:56] VITALS: BP 150/73
[2017-11-21] MEDS: OxyCODONE HCL 5 MG IR TABLET PO PRN ×4 (02:56→20:19)
[2017-11-21] MEDS: PANTOPRAZOLE SODIUM 40 MG DR TABLET PO SCH (05:41)
[2017-11-21 07:30] VITALS: BP 151/76
[2017-11-21] MEDS: FERROUS SULFATE 325 MG EC TABLET PO SCH ×2 (07:30→08:25)
[2017-11-21] MEDS: ONDANSETRON HCL 4 MG TABLET PO PRN (07:40)
[2017-11-21] MEDS: TraMADol HCL 50 MG TABLET PO PRN (08:24)
[2017-11-21] MEDS: APIXABAN 5 MG TABLET PO SCH ×2 (08:24→20:18)
[2017-11-21] MEDS: CHOLECALCIFEROL (VIT D3) 2,000 UNITS TABLET PO SCH (08:25)
[2017-11-21] MEDS: MULTIVITAMINS WITH MINERALS, THERAPEUTIC TABLET PO SCH (08:25)
[2017-11-21] MEDS: SOTALOL HCL 80 MG TABLET PO SCH (08:25)
[2017-11-21] MEDS: BETHANECHOL CHLORIDE 25 MG TABLET PO SCH ×3 (08:25→20:18)
[2017-11-21] MEDS: ASCORBIC ACID 500 MG TABLET PO SCH (08:25)
[2017-11-21] MEDS: POLYETHYLENE GLYCOL 3350 17 GM PACKET PO SCH (08:25)
[2017-11-21] MEDS: DOCUSATE SODIUM 283 MG/5 ML MINI-ENEMA PR PRN ×2 (08:40→08:44)
[2017-11-21] MEDS: NYSTATIN 15 GM POWDER BOTTLE TP SCH ×2 (08:41→21:00)
[2017-11-21] MEDS: DOCUSATE SODIUM/BENZOCAINE 283-20MG/5 ML MINI-ENEMA PR SCH (08:46)
[2017-11-21] MEDS: DICLOFENAC SODIUM 1% 100 GM GEL [2GM] TP SCH ×3 (09:00→21:00)
[2017-11-21] MEDS: AmLODIPine BESYLATE 5 MG TABLET PO SCH (09:56)
[2017-11-21 16:02] VITALS: BP 156/81
[2017-11-21] MEDS: TAMSULOSIN HCL 0.4 MG CAPSULE PO SCH (21:00)
[2017-11-21] MEDS: SENNA 187 MG TABLET PO SCH (21:00)
[2017-11-22 00:28] VITALS: BP 138/75
[2017-11-22] MEDS: OxyCODONE HCL 5 MG IR TABLET PO PRN ×6 (00:28→21:25)
[2017-11-22] MEDS: PANTOPRAZOLE SODIUM 40 MG DR TABLET PO SCH (06:21)
[2017-11-22 07:09] LABS: BASOPHILS % (AUTO) 0.9 % (0.0-2.0); EOSINOPHILS % (AUTO) 9.4 % (1.0-6.0); HEMATOCRIT 36.5 % (41-53); HEMOGLOBIN 12.2 g/dL (13.5-17.5); LYMPHOCYTES # (AUTO) 0.9 K/uL (1.0-4.8); LYMPHOCYTES % (AUTO) 14.7 % (22.0-44.0); MEAN CORPUSCULAR HEMOGLOBIN 31.2 pg (26.0-34.0); MEAN CORPUSCULAR HGB CONC 33.5 G/dL (31.0-37.0); MEAN CORPUSCULAR VOLUME 93 fL (80-100); MONOCYTES # (AUTO) 0.7 K/uL (0.1-1.0); MONOCYTES % (AUTO) 11.4 % (2.0-9.0); NEUTROPHILS % (AUTO) 63.6 % (40.0-70.0); PLATELET COUNT (AUTO) 201 K/uL (150-450); RED BLOOD CELL COUNT(AUTO) 3.93 MIL/uL (4.50-5.90); RED CELL DISTRIBUTION WIDTH 18.6 % (11.5-14.5)
[2017-11-22] MEDS: FERROUS SULFATE 325 MG EC TABLET PO SCH (07:30)
[2017-11-22 07:32] LABS: CALCIUM, TOTAL 9.7 mg/dL (8.8-10.5); CREATININE 1.32 mg/dL (0.60-1.30); POTASSIUM 5.3 mmol/L (3.5-5.1)
[2017-11-22] MEDS: ONDANSETRON HCL 4 MG TABLET PO PRN (07:40)
[2017-11-22 07:48] VITALS: BP 153/78
[2017-11-22] MEDS: ASCORBIC ACID 500 MG TABLET PO SCH (08:52)
[2017-11-22] MEDS: BETHANECHOL CHLORIDE 25 MG TABLET PO SCH ×3 (08:52→20:23)
[2017-11-22] MEDS: APIXABAN 5 MG TABLET PO SCH ×2 (08:52→20:23)
[2017-11-22] MEDS: SOTALOL HCL 80 MG TABLET PO SCH (08:52)
[2017-11-22] MEDS: MULTIVITAMINS WITH MINERALS, THERAPEUTIC TABLET PO SCH (08:52)
[2017-11-22] MEDS: CHOLECALCIFEROL (VIT D3) 2,000 UNITS TABLET PO SCH (08:53)
[2017-11-22] MEDS: AmLODIPine BESYLATE 5 MG TABLET PO SCH (08:55)
[2017-11-22] MEDS: DICLOFENAC SODIUM 1% 100 GM GEL [2GM] TP SCH ×3 (09:00→20:29)
[2017-11-22] MEDS ORDERED: FUROSEMIDE 20 MG TABLET PO SCH (09:00)
[2017-11-22] MEDS ORDERED: AmLODIPine BESYLATE 5 MG TABLET PO SCH (09:00)
[2017-11-22] MEDS: NYSTATIN 15 GM POWDER BOTTLE TP SCH ×2 (09:00→20:23)
[2017-11-22] MEDS: POLYETHYLENE GLYCOL 3350 17 GM PACKET PO SCH (13:24)
[2017-11-22] MEDS ORDERED: DOCUSATE SODIUM 283 MG/5 ML MINI-ENEMA PR ONE (16:45)
[2017-11-22] MEDS ORDERED: POLYETHYLENE GLYCOL 3350 17 GM PACKET PO ONE (16:45)
[2017-11-22 17:30] VITALS: BP 138/74
[2017-11-22] MEDS: TAMSULOSIN HCL 0.4 MG CAPSULE PO SCH (20:29)
[2017-11-22] MEDS: SENNA 187 MG TABLET PO SCH (20:29)
[2017-11-22] MEDS ORDERED: SODIUM CHLORIDE 0.9% 1,000 ML IV ONE (21:45)
[2017-11-22 23:51] VITALS: BP 122/72
[2017-11-23] MEDS: OxyCODONE HCL 5 MG IR TABLET PO PRN ×4 (01:35→18:11)
[2017-11-23 03:14] LABS: CREATININE,URINE RANDOM 116.4 mg/dL (30.0-125.0)
[2017-11-23] MEDS: TraMADol HCL 50 MG TABLET PO PRN ×2 (03:45→20:45)
[2017-11-23] MEDS: PANTOPRAZOLE SODIUM 40 MG DR TABLET PO SCH (06:00)
[2017-11-23 07:03] LABS: CALCIUM, TOTAL 9.7 mg/dL (8.8-10.5); CREATININE 1.47 mg/dL (0.60-1.30); POTASSIUM 5.1 mmol/L (3.5-5.1)
[2017-11-23] MEDS: FERROUS SULFATE 325 MG EC TABLET PO SCH (07:30)
[2017-11-23 07:42] VITALS: BP 148/78
[2017-11-23] MEDS: POLYETHYLENE GLYCOL 3350 17 GM PACKET PO SCH (08:29)
[2017-11-23] MEDS: DICLOFENAC SODIUM 1% 100 GM GEL [2GM] TP SCH ×3 (08:30→21:00)
[2017-11-23] MEDS: ASCORBIC ACID 500 MG TABLET PO SCH (08:30)
[2017-11-23] MEDS: APIXABAN 5 MG TABLET PO SCH ×2 (08:30→21:52)
[2017-11-23] MEDS: CHOLECALCIFEROL (VIT D3) 2,000 UNITS TABLET PO SCH (08:30)
[2017-11-23] MEDS: AmLODIPine BESYLATE 5 MG TABLET PO SCH (08:30)
[2017-11-23] MEDS: SOTALOL HCL 80 MG TABLET PO SCH (08:30)
[2017-11-23] MEDS: NYSTATIN 15 GM POWDER BOTTLE TP SCH ×2 (08:31→21:54)
[2017-11-23] MEDS: MULTIVITAMINS WITH MINERALS, THERAPEUTIC TABLET PO SCH (08:31)
[2017-11-23] MEDS: BETHANECHOL CHLORIDE 25 MG TABLET PO SCH ×3 (08:31→21:00)
[2017-11-23] MEDS: DOCUSATE SODIUM/BENZOCAINE 283-20MG/5 ML MINI-ENEMA PR SCH (08:32)
[2017-11-23] MEDS ORDERED: SODIUM CHLORIDE 0.9% 1,000 ML IV ONE (09:00)
[2017-11-23] MEDS: SODIUM CHLORIDE 0.9% 1,000 ML IV SCH (11:15)
[2017-11-23 15:34] VITALS: BP 125/67
[2017-11-23 17:00] LABS: APPEARANCE,URINE CLOUDY (CLEAR); BILIRUBIN,URINE NEGATIVE (NEGATIVE); GLUCOSE, URINE (UA) NEGATIVE (NEGATIVE); KETONES,URINE NEGATIVE (NEGATIVE); LEUKOCYTE ESTERASE ,URINE LARGE (NEGATIVE); NITRATE,URINE POSITIVE (NEGATIVE); OCCULT BLOOD,URINE MODERATE (NEGATIVE); PH,URINE 6.5 (5.0-8.0); PROTEIN,URINE TRACE (NEGATIVE)
[2017-11-23 17:29] LABS: BACTERIA,URINE Few /HPF (None Seen); WBC,URINE >100 /HPF (0-5)
[2017-11-23 17:30] LABS: SQUAMOUS EPITHELIAL CELL,UR Few /LPF (None Seen)
[2017-11-23] MEDS: TAMSULOSIN HCL 0.4 MG CAPSULE PO SCH (21:00)
[2017-11-23] MEDS: SENNA 187 MG TABLET PO SCH (21:00)
[2017-11-23] MEDS: MIRTAZAPINE 15 MG TABLET PO SCH (21:52)
[2017-11-24 00:17] VITALS: BP 144/75
[2017-11-24] MEDS: OxyCODONE HCL 5 MG IR TABLET PO PRN ×4 (00:17→20:41)
[2017-11-24] MEDS: SODIUM CHLORIDE 0.9% 1,000 ML IV SCH ×3 (01:08→13:55)
[2017-11-24 05:42] LABS: ANION GAP 5 mmol/L (8-16); CALCIUM, TOTAL 9.4 mg/dL (8.8-10.5); CARBON DIOXIDE 27 mmol/L (22-29); CHLORIDE 103 mmol/L (98-107); CREATININE 1.15 mg/dL (0.60-1.30); GLUCOSE,RANDOM 92 mg/dL (70-110); SODIUM SERUM 135 mmol/L (136-145); UREA NITROGEN, BLOOD 47 mg/dL (7-18)
[2017-11-24 05:47] LABS: GLOMERULAR FILTR. RATE CALC > 60 mL/min (>60)
[2017-11-24 07:20] VITALS: BP 155/86
[2017-11-24] MEDS: FERROUS SULFATE 325 MG EC TABLET PO SCH (07:30)
[2017-11-24] MEDS ORDERED: SOTALOL HCL 80 MG TABLET PO SCH (09:00)
[2017-11-24] MEDS: MULTIVITAMINS WITH MINERALS, THERAPEUTIC TABLET PO SCH (09:00)
[2017-11-24] MEDS: APIXABAN 5 MG TABLET PO SCH ×2 (09:00→20:41)
[2017-11-24] MEDS: POLYETHYLENE GLYCOL 3350 17 GM PACKET PO SCH (09:00)
[2017-11-24] MEDS: DICLOFENAC SODIUM 1% 100 GM GEL [2GM] TP SCH ×4 (09:00→20:42)
[2017-11-24] MEDS: BETHANECHOL CHLORIDE 25 MG TABLET PO SCH ×3 (09:00→20:42)
[2017-11-24] MEDS: SOTALOL HCL 80 MG TABLET PO SCH (09:00)
[2017-11-24] MEDS: CHOLECALCIFEROL (VIT D3) 2,000 UNITS TABLET PO SCH (09:46)
[2017-11-24] MEDS: NYSTATIN 15 GM POWDER BOTTLE TP SCH ×2 (09:46→20:42)
[2017-11-24] MEDS: ASCORBIC ACID 500 MG TABLET PO SCH (09:46)
[2017-11-24] MEDS: AmLODIPine BESYLATE 5 MG TABLET PO SCH (11:50)
[2017-11-24] MEDS ORDERED: SODIUM CHLORIDE 0.9% 1,000 ML IV ONE (12:15)
[2017-11-24 12:30] VITALS: BP 117/59
[2017-11-24] MEDS: TraMADol HCL 50 MG TABLET PO PRN (16:45)
[2017-11-24 17:32] VITALS: BP 127/70
[2017-11-24] MEDS: MIRTAZAPINE 15 MG TABLET PO SCH (20:41)
[2017-11-24] MEDS: TAMSULOSIN HCL 0.4 MG CAPSULE PO SCH (20:41)
[2017-11-24] MEDS: SENNA 187 MG TABLET PO SCH (20:42)
[2017-11-25 00:49] VITALS: BP 124/63
[2017-11-25] MEDS: OxyCODONE HCL 5 MG IR TABLET PO PRN ×4 (00:49→21:10)
[2017-11-25] MEDS: TraMADol HCL 50 MG TABLET PO PRN ×2 (02:56→08:09)
[2017-11-25 07:05] LABS: ALANINE AMINOTRANSFERASE 24 U/L (12-78); ALBUMIN 3.3 g/dL (3.4-5.0); ALKALINE PHOSPHATASE 80 U/L (46-116); ANION GAP 8 mmol/L (8-16); ASPARTATE AMINOTRANSFERASE 21 U/L (15-37); BILIRUBIN,TOTAL 0.6 mg/dL (0.1-1.0); CALCIUM, TOTAL 9.2 mg/dL (8.8-10.5); CARBON DIOXIDE 25 mmol/L (22-29); CHLORIDE 104 mmol/L (98-107); CREATININE 1.04 mg/dL (0.60-1.30); GLUCOSE,RANDOM 94 mg/dL (70-110); POTASSIUM 4.9 mmol/L (3.5-5.1); SODIUM SERUM 137 mmol/L (136-145); TOTAL PROTEIN, SERUM 6.9 g/dL (6.4-8.2); UREA NITROGEN, BLOOD 39 mg/dL (7-18)
[2017-11-25 07:07] LABS: GLOMERULAR FILTR. RATE CALC > 60 mL/min (>60)
[2017-11-25 07:27] VITALS: BP 159/80
[2017-11-25] MEDS: FERROUS SULFATE 325 MG EC TABLET PO SCH (07:30)
[2017-11-25] MEDS: ASCORBIC ACID 500 MG TABLET PO SCH (08:16)
[2017-11-25] MEDS: POLYETHYLENE GLYCOL 3350 17 GM PACKET PO SCH ×2 (08:16→09:00)
[2017-11-25] MEDS: MULTIVITAMINS WITH MINERALS, THERAPEUTIC TABLET PO SCH ×2 (08:16→08:18)
[2017-11-25] MEDS: APIXABAN 5 MG TABLET PO SCH ×2 (08:16→21:10)
[2017-11-25] MEDS: CHOLECALCIFEROL (VIT D3) 2,000 UNITS TABLET PO SCH (08:16)
[2017-11-25] MEDS: BETHANECHOL CHLORIDE 25 MG TABLET PO SCH ×3 (08:16→21:10)
[2017-11-25] MEDS: SOTALOL HCL 80 MG TABLET PO SCH (08:17)
[2017-11-25] MEDS: NYSTATIN 15 GM POWDER BOTTLE TP SCH ×2 (08:17→21:11)
[2017-11-25] MEDS: DICLOFENAC SODIUM 1% 100 GM GEL [2GM] TP SCH ×3 (08:17→21:00)
[2017-11-25] MEDS: DOCUSATE SODIUM/BENZOCAINE 283-20MG/5 ML MINI-ENEMA PR SCH (08:18)
[2017-11-25] MEDS: AmLODIPine BESYLATE 5 MG TABLET PO SCH (09:00)
[2017-11-25] MEDS ORDERED: FUROSEMIDE 20 MG TABLET PO SCH (09:00)
[2017-11-25 15:37] VITALS: BP 147/82
[2017-11-25] MEDS ORDERED: AmLODIPine BESYLATE 5 MG TABLET PO ONE (18:15)
[2017-11-25] MEDS: SENNA 187 MG TABLET PO SCH (21:00)
[2017-11-25] MEDS: TAMSULOSIN HCL 0.4 MG CAPSULE PO SCH (21:00)
[2017-11-25] MEDS: MIRTAZAPINE 15 MG TABLET PO SCH (21:10)
[2017-11-26 00:52] VITALS: BP 142/72
[2017-11-26] MEDS: OxyCODONE HCL 5 MG IR TABLET PO PRN ×5 (01:16→22:37)
[2017-11-26] MEDS: TraMADol HCL 50 MG TABLET PO PRN ×2 (03:37→15:35)
[2017-11-26] MEDS: FERROUS SULFATE 325 MG EC TABLET PO SCH (07:30)
[2017-11-26 08:29] VITALS: BP 137/72
[2017-11-26] MEDS: APIXABAN 5 MG TABLET PO SCH ×2 (08:31→21:47)
[2017-11-26] MEDS: AmLODIPine BESYLATE 5 MG TABLET PO SCH (08:32)
[2017-11-26] MEDS: ASCORBIC ACID 500 MG TABLET PO SCH (08:32)
[2017-11-26] MEDS: DICLOFENAC SODIUM 1% 100 GM GEL [2GM] TP SCH ×3 (08:32→21:00)
[2017-11-26] MEDS: BETHANECHOL CHLORIDE 25 MG TABLET PO SCH ×3 (08:32→21:47)
[2017-11-26] MEDS: CHOLECALCIFEROL (VIT D3) 2,000 UNITS TABLET PO SCH (08:32)
[2017-11-26] MEDS: NYSTATIN 15 GM POWDER BOTTLE TP SCH ×2 (08:32→21:46)
[2017-11-26] MEDS: MULTIVITAMINS WITH MINERALS, THERAPEUTIC TABLET PO SCH (08:32)
[2017-11-26] MEDS: SOTALOL HCL 80 MG TABLET PO SCH (08:33)
[2017-11-26] MEDS: POLYETHYLENE GLYCOL 3350 17 GM PACKET PO SCH (09:00)
[2017-11-26 15:31] VITALS: BP 150/77
[2017-11-26] MEDS: SENNA 187 MG TABLET PO SCH (21:00)
[2017-11-26] MEDS: TAMSULOSIN HCL 0.4 MG CAPSULE PO SCH (21:00)
[2017-11-26] MEDS: MIRTAZAPINE 15 MG TABLET PO SCH (21:47)
[2017-11-26 23:35] VITALS: BP 136/62
[2017-11-27] MEDS: OxyCODONE HCL 5 MG IR TABLET PO PRN ×4 (03:50→21:24)
[2017-11-27 06:36] LABS: BASOPHILS % (AUTO) 0.9 % (0.0-2.0); EOSINOPHILS % (AUTO) 7.2 % (1.0-6.0); HEMATOCRIT 33.2 % (41-53); HEMOGLOBIN 11.2 g/dL (13.5-17.5); LYMPHOCYTES # (AUTO) 0.8 K/uL (1.0-4.8); LYMPHOCYTES % (AUTO) 14.7 % (22.0-44.0); MEAN CORPUSCULAR HEMOGLOBIN 31.5 pg (26.0-34.0); MEAN CORPUSCULAR HGB CONC 33.8 G/dL (31.0-37.0); MEAN CORPUSCULAR VOLUME 93 fL (80-100); MONOCYTES # (AUTO) 0.9 K/uL (0.1-1.0); MONOCYTES % (AUTO) 16.2 % (2.0-9.0); NEUTROPHILS # (AUTO) 3.4 K/uL (1.8-7.7); PLATELET COUNT (AUTO) 141 K/uL (150-450); RED BLOOD CELL COUNT(AUTO) 3.56 MIL/uL (4.50-5.90); RED CELL DISTRIBUTION WIDTH 17.6 % (11.5-14.5)
[2017-11-27] MEDS ORDERED: SENNA 187 MG TABLET PO PRN (07:00)
[2017-11-27 07:03] LABS: CALCIUM, TOTAL 9.6 mg/dL (8.8-10.5); CREATININE 1.24 mg/dL (0.60-1.30); POTASSIUM 4.8 mmol/L (3.5-5.1)
[2017-11-27] MEDS: FERROUS SULFATE 325 MG EC TABLET PO SCH (07:30)
[2017-11-27 07:52] VITALS: BP 149/77
[2017-11-27] MEDS: BETHANECHOL CHLORIDE 25 MG TABLET PO SCH ×3 (08:56→21:25)
[2017-11-27] MEDS: APIXABAN 5 MG TABLET PO SCH ×2 (08:56→21:24)
[2017-11-27] MEDS: ASCORBIC ACID 500 MG TABLET PO SCH (08:56)
[2017-11-27] MEDS: AmLODIPine BESYLATE 5 MG TABLET PO SCH (08:56)
[2017-11-27] MEDS: CHOLECALCIFEROL (VIT D3) 2,000 UNITS TABLET PO SCH (08:57)
[2017-11-27] MEDS: SOTALOL HCL 80 MG TABLET PO SCH (08:57)
[2017-11-27] MEDS: NYSTATIN 15 GM POWDER BOTTLE TP SCH ×2 (09:00→21:25)
[2017-11-27] MEDS ORDERED: DOCUSATE SODIUM/BENZOCAINE 283-20MG/5 ML MINI-ENEMA PR PRN (09:00)
[2017-11-27] MEDS: POLYETHYLENE GLYCOL 3350 17 GM PACKET PO SCH (09:00)
[2017-11-27] MEDS: MULTIVITAMINS WITH MINERALS, THERAPEUTIC TABLET PO SCH (09:00)
[2017-11-27] MEDS: DICLOFENAC SODIUM 1% 100 GM GEL [2GM] TP PRN (11:10)
[2017-11-27] MEDS: HYDROCORTISONE 1% 30 GM OINTMENT TP PRN ×3 (11:13→21:40)
[2017-11-27] MEDS: TraMADol HCL 50 MG TABLET PO PRN (12:01)
[2017-11-27 15:20] VITALS: BP 154/79
[2017-11-27] MEDS: TAMSULOSIN HCL 0.4 MG CAPSULE PO SCH (21:00)
[2017-11-27] MEDS: MIRTAZAPINE 15 MG TABLET PO SCH (22:37)
[2017-11-27 23:41] VITALS: BP 154/75
[2017-11-28] MEDS: OxyCODONE HCL 5 MG IR TABLET PO PRN ×5 (01:29→21:16)
[2017-11-28 04:45] LABS: APPEARANCE,URINE CLOUDY (CLEAR); BILIRUBIN,URINE NEGATIVE (NEGATIVE); GLUCOSE, URINE (UA) NEGATIVE (NEGATIVE); KETONES,URINE NEGATIVE (NEGATIVE); LEUKOCYTE ESTERASE ,URINE LARGE (NEGATIVE); NITRATE,URINE POSITIVE (NEGATIVE); OCCULT BLOOD,URINE MODERATE (NEGATIVE); PROTEIN,URINE POS 1+ (NEGATIVE); UROBILINOGEN,URINE 0.2 mg/dL (<=1.0)
[2017-11-28 05:01] LABS: BACTERIA,URINE Few /HPF (None Seen)
[2017-11-28 05:02] LABS: SQUAMOUS EPITHELIAL CELL,UR Rare /LPF (None Seen); YEAST,URINE Rare /HPF (None Seen)
[2017-11-28] MEDS: FERROUS SULFATE 325 MG EC TABLET PO SCH (07:30)
[2017-11-28 08:05] VITALS: BP 181/92
[2017-11-28] MEDS: HYDROCORTISONE 1% 30 GM OINTMENT TP PRN ×4 (08:05→20:28)
[2017-11-28] MEDS: NYSTATIN 15 GM POWDER BOTTLE TP SCH ×2 (09:00→21:18)
[2017-11-28] MEDS: MULTIVITAMINS WITH MINERALS, THERAPEUTIC TABLET PO SCH (09:00)
[2017-11-28] MEDS: ASCORBIC ACID 500 MG TABLET PO SCH (09:00)
[2017-11-28] MEDS: POLYETHYLENE GLYCOL 3350 17 GM PACKET PO SCH (09:00)
[2017-11-28 09:35] VITALS: BP 138/73
[2017-11-28] MEDS: CHOLECALCIFEROL (VIT D3) 2,000 UNITS TABLET PO SCH (09:39)
[2017-11-28] MEDS: DICLOFENAC SODIUM 1% 100 GM GEL [2GM] TP PRN (09:39)
[2017-11-28] MEDS: SOTALOL HCL 80 MG TABLET PO SCH (09:40)
[2017-11-28] MEDS: AmLODIPine BESYLATE 5 MG TABLET PO SCH (09:40)
[2017-11-28] MEDS: APIXABAN 5 MG TABLET PO SCH ×2 (09:40→21:16)
[2017-11-28] MEDS: BETHANECHOL CHLORIDE 25 MG TABLET PO SCH ×3 (09:40→21:18)
[2017-11-28 15:00] VITALS: BP 159/76
[2017-11-28] MEDS: TAMSULOSIN HCL 0.4 MG CAPSULE PO SCH (21:00)
[2017-11-28] MEDS: MIRTAZAPINE 15 MG TABLET PO SCH (22:09)
[2017-11-28] MEDS ORDERED: DiphenhydrAMINE HCL 25 MG CAPSULE PO PRN (22:30)
[2017-11-29 02:14] VITALS: BP 149/82
[2017-11-29] MEDS: OxyCODONE HCL 5 MG IR TABLET PO PRN ×5 (02:14→22:04)
[2017-11-29 07:27] VITALS: BP 148/85
[2017-11-29] MEDS: FERROUS SULFATE 325 MG EC TABLET PO SCH (07:30)
[2017-11-29] MEDS: HYDROCORTISONE 1% 30 GM OINTMENT TP PRN ×4 (07:32→20:54)
[2017-11-29] MEDS: SOTALOL HCL 80 MG TABLET PO SCH (08:52)
[2017-11-29] MEDS: AmLODIPine BESYLATE 5 MG TABLET PO SCH (08:52)
[2017-11-29] MEDS: CHOLECALCIFEROL (VIT D3) 2,000 UNITS TABLET PO SCH (08:52)
[2017-11-29] MEDS: APIXABAN 5 MG TABLET PO SCH ×2 (08:52→20:55)
[2017-11-29] MEDS: POLYETHYLENE GLYCOL 3350 17 GM PACKET PO SCH (08:52)
[2017-11-29] MEDS: BETHANECHOL CHLORIDE 25 MG TABLET PO SCH ×3 (08:52→20:56)
[2017-11-29] MEDS: ASCORBIC ACID 500 MG TABLET PO SCH (08:53)
[2017-11-29] MEDS: MULTIVITAMINS WITH MINERALS, THERAPEUTIC TABLET PO SCH (08:53)
[2017-11-29] MEDS: NYSTATIN 15 GM POWDER BOTTLE TP SCH (08:53)
[2017-11-29] MEDS ORDERED: NYSTATIN 15 GM POWDER BOTTLE TP PRN (09:00)
[2017-11-29 15:06] VITALS: BP 155/68
[2017-11-29 16:42] VITALS: BP 141/77
[2017-11-29] MEDS: TAMSULOSIN HCL 0.4 MG CAPSULE PO SCH (21:00)
[2017-11-29] MEDS: MIRTAZAPINE 15 MG TABLET PO SCH ×2 (22:04→23:26)
[2017-11-29 23:43] VITALS: BP 102/59
[2017-11-30] MEDS: OxyCODONE HCL 5 MG IR TABLET PO PRN ×5 (02:37→20:42)
[2017-11-30 06:54] LABS: BASOPHILS % (AUTO) 0.8 % (0.0-2.0); EOSINOPHILS % (AUTO) 11.5 % (1.0-6.0); HEMATOCRIT 37.4 % (41-53); HEMOGLOBIN 12.4 g/dL (13.5-17.5); LYMPHOCYTES # (AUTO) 0.9 K/uL (1.0-4.8); LYMPHOCYTES % (AUTO) 15.9 % (22.0-44.0); MEAN CORPUSCULAR HEMOGLOBIN 30.9 pg (26.0-34.0); MEAN CORPUSCULAR HGB CONC 33.2 G/dL (31.0-37.0); MEAN CORPUSCULAR VOLUME 93 fL (80-100); MONOCYTES # (AUTO) 0.6 K/uL (0.1-1.0); MONOCYTES % (AUTO) 10.8 % (2.0-9.0); NEUTROPHILS # (AUTO) 3.4 K/uL (1.8-7.7); PLATELET COUNT (AUTO) 162 K/uL (150-450); RED BLOOD CELL COUNT(AUTO) 4.03 MIL/uL (4.50-5.90); RED CELL DISTRIBUTION WIDTH 17.6 % (11.5-14.5)
[2017-11-30 07:12] LABS: ANION GAP 6 mmol/L (8-16); CALCIUM, TOTAL 9.6 mg/dL (8.8-10.5); CARBON DIOXIDE 29 mmol/L (22-29); CHLORIDE 104 mmol/L (98-107); CREATININE 1.09 mg/dL (0.60-1.30); GLOMERULAR FILTR. RATE CALC > 60 mL/min (>60); GLUCOSE,RANDOM 96 mg/dL (70-110); PHOSPHORUS 4.5 mg/dL (2.5-4.9); POTASSIUM 4.9 mmol/L (3.5-5.1); SODIUM SERUM 139 mmol/L (136-145); UREA NITROGEN, BLOOD 42 mg/dL (7-18)
[2017-11-30] MEDS: FERROUS SULFATE 325 MG EC TABLET PO SCH (07:30)
[2017-11-30 08:12] VITALS: BP 145/74
[2017-11-30] MEDS: HYDROCORTISONE 1% 30 GM OINTMENT TP PRN (08:16)
[2017-11-30] MEDS: BETHANECHOL CHLORIDE 25 MG TABLET PO SCH ×3 (08:16→20:50)
[2017-11-30] MEDS: SOTALOL HCL 80 MG TABLET PO SCH (08:17)
[2017-11-30] MEDS: APIXABAN 5 MG TABLET PO SCH ×2 (08:17→20:50)
[2017-11-30] MEDS: CHOLECALCIFEROL (VIT D3) 2,000 UNITS TABLET PO SCH (08:18)
[2017-11-30] MEDS: AmLODIPine BESYLATE 5 MG TABLET PO SCH (08:18)
[2017-11-30] MEDS: MULTIVITAMINS WITH MINERALS, THERAPEUTIC TABLET PO SCH (08:19)
[2017-11-30] MEDS: POLYETHYLENE GLYCOL 3350 17 GM PACKET PO SCH (08:19)
[2017-11-30] MEDS: ASCORBIC ACID 500 MG TABLET PO SCH (08:19)
[2017-11-30 16:13] VITALS: BP 112/67
[2017-11-30] MEDS: TAMSULOSIN HCL 0.4 MG CAPSULE PO SCH (20:48)
[2017-11-30] MEDS: BETAMETHASONE DIP 0.05% 15 GM OINTMENT TP SCH (20:50)
[2017-11-30] MEDS: MIRTAZAPINE 15 MG TABLET PO SCH (22:29)
[2017-12-01 02:13] VITALS: BP 156/78
[2017-12-01] MEDS: OxyCODONE HCL 5 MG IR TABLET PO PRN ×4 (02:13→22:07)
[2017-12-01 07:28] VITALS: BP 161/92
[2017-12-01] MEDS: FERROUS SULFATE 325 MG EC TABLET PO SCH (07:30)
[2017-12-01] MEDS: BETAMETHASONE DIP 0.05% 15 GM OINTMENT TP SCH ×2 (08:23→22:01)
[2017-12-01] MEDS: SOTALOL HCL 80 MG TABLET PO SCH (08:24)
[2017-12-01] MEDS: AmLODIPine BESYLATE 5 MG TABLET PO SCH (08:24)
[2017-12-01] MEDS: CHOLECALCIFEROL (VIT D3) 2,000 UNITS TABLET PO SCH (08:24)
[2017-12-01] MEDS: APIXABAN 5 MG TABLET PO SCH ×2 (08:24→22:00)
[2017-12-01] MEDS: BETHANECHOL CHLORIDE 25 MG TABLET PO SCH ×3 (08:24→22:01)
[2017-12-01] MEDS: ASCORBIC ACID 500 MG TABLET PO SCH (08:28)
[2017-12-01] MEDS: POLYETHYLENE GLYCOL 3350 17 GM PACKET PO SCH (08:28)
[2017-12-01] MEDS: MULTIVITAMINS WITH MINERALS, THERAPEUTIC TABLET PO SCH (08:28)
[2017-12-01 10:00] VITALS: BP 140/70
[2017-12-01] MEDS ORDERED: DIPR15O TP (10:15)
[2017-12-01] MEDS ORDERED: ASCO500 PO (10:15)
[2017-12-01] MEDS ORDERED: AMLO-511 PO (10:15)
[2017-12-01] MEDS ORDERED: APIX5TAB PO (10:15)
[2017-12-01 12:38] VITALS: BP 132/79
[2017-12-01] MEDS ORDERED: SOTA80 PO (13:31)
[2017-12-01] MEDS ORDERED: MIRT15 PO (13:31)
[2017-12-01] MEDS ORDERED: TAMS0.4C32 PO (13:31)
[2017-12-01] MEDS ORDERED: MIRALAX PO (13:31)
[2017-12-01] MEDS ORDERED: BETH25 PO (13:31)
[2017-12-01] MEDS ORDERED: CHOL200016 PO (13:31)
[2017-12-01] MEDS ORDERED: TRAM50TA4 PO (13:31)
[2017-12-01] MEDS ORDERED: OXYC5 PO (13:31)
[2017-12-01 15:32] VITALS: BP 125/56
[2017-12-01] MEDS: TraMADol HCL 50 MG TABLET PO PRN (19:11)
[2017-12-01] MEDS: TAMSULOSIN HCL 0.4 MG CAPSULE PO SCH (21:00)
[2017-12-01] MEDS: MIRTAZAPINE 15 MG TABLET PO SCH (23:00)
[2017-12-01 23:07] VITALS: BP 140/70
[2017-12-02] MEDS: OxyCODONE HCL 5 MG IR TABLET PO PRN ×2 (02:32→08:33)
[2017-12-02 06:39] LABS: CALCIUM, TOTAL 9.3 mg/dL (8.8-10.5); CREATININE 1.19 mg/dL (0.60-1.30); POTASSIUM 4.4 mmol/L (3.5-5.1)
[2017-12-02 07:24] VITALS: BP 156/75
[2017-12-02] MEDS: FERROUS SULFATE 325 MG EC TABLET PO SCH (07:30)
[2017-12-02] MEDS: APIXABAN 5 MG TABLET PO SCH (08:56)
[2017-12-02] MEDS: CHOLECALCIFEROL (VIT D3) 2,000 UNITS TABLET PO SCH (08:56)
[2017-12-02] MEDS: AmLODIPine BESYLATE 5 MG TABLET PO SCH (08:57)
[2017-12-02] MEDS: POLYETHYLENE GLYCOL 3350 17 GM PACKET PO SCH (08:57)
[2017-12-02] MEDS: SOTALOL HCL 80 MG TABLET PO SCH (08:57)
[2017-12-02] MEDS: BETHANECHOL CHLORIDE 25 MG TABLET PO SCH (08:57)
[2017-12-02] MEDS: ASCORBIC ACID 500 MG TABLET PO SCH (08:58)
[2017-12-02] MEDS: MULTIVITAMINS WITH MINERALS, THERAPEUTIC TABLET PO SCH (08:58)
[2017-12-02] MEDS: BETAMETHASONE DIP 0.05% 15 GM OINTMENT TP SCH (09:06)
== END 2017-12-02 11:15 | disposition home or self-care (01) | DRG 552 ==
LOC: 2WR 13:30
PROVIDERS: ADMIT Physical Medicine & Rehabilitation; ATTEND Physical Medicine & Rehabilitation
DX: M48.02 Spinal stenosis, cervical region (principal); N39.0 Urinary tract infection, site not specified; N17.9 Acute kidney failure, unspecified; D64.9 Anemia, unspecified; E87.5 Hyperkalemia; I11.0 Hypertensive heart disease with heart failure; I25.10 Atherosclerotic heart disease of native coronary artery without angina pectoris; I25.5 Ischemic cardiomyopathy; I48.91 Unspecified atrial fibrillation; I50.9 Heart failure, unspecified; L89.92 Pressure ulcer of unspecified site, stage 2; N31.9 Neuromuscular dysfunction of bladder, unspecified; Z86.711 Personal history of pulmonary embolism; Z86.74 Personal history of sudden cardiac arrest; Z87.01 Personal history of pneumonia (recurrent); Z95.5 Presence of coronary angioplasty implant and graft; Z95.810 Presence of automatic (implantable) cardiac defibrillator; B96.1 Klebsiella pneumoniae [K. pneumoniae] as the cause of diseases classified elsewhere; Z98.1 Arthrodesis status
CPT/HCPCS: 76770; 82570; 82607; 82728; 82746; 83540; 83550; 83735; 84100; 84132; 84133; 84134; 84153; 84300; 84443; 84540; 84550; 87081; 87086; 92526; 92610; 93005; 93970; 97110; 97112; 97116; 97140; 97163; 97167; 97530; 97535; 99366; J0610; J0885; J3301; J3490; J7030; J7060; Q0162